=== PATIENT | female | born 1960 | race Caucasian/White ===

== ENCOUNTER 2017-12-31 08:07 | Inpatient (IN) | payer OTHER ==
[2017-12-31] VITALS (15 sets, daily range): BP systolic 119–171; BP diastolic 56–75
[~2017-12-31] VITALS: Ht 175.3 cm; Wt 137.0 kg
[~2017-12-31 08:07] MED LIST: ALORA0.025 MG PO; AMOXICILLIN500 MG PO; LOPRESSOR25 MG PO; METOPROL TAR25 MG PO; NORCO1 TA1 PO; NORVASC2.5 MG PO
--- NOTE | 2017-12-31 08:16 | NUR ---
WHEELCHAIR TO ER ROOM10, TO BED
[2017-12-31 08:25] LABS: HEMATOCRIT 39.7 % (37.0-47.0); HEMOGLOBIN 12.6 g/dl (12.0-16.0); IMMATURE GRANULOCYTES 0.3 % (0.0-1.0); MEAN CORPUSCULAR HGB 29.7 pG CALC (26.0-32.0); MEAN CORPUSCULAR HGB CONC 31.7 g/L CALC (32.0-36.0); NEUT# 5.72 thou/uL (2.00-7.15); RED BLOOD COUNT 4.24 mill/uL (4.20-5.60); RED CELL DISTRI WIDTH 13.6 % (11.5-15.5)
[2017-12-31 08:26] LABS: MEAN CELL VOLUME 93.6 fL CALC (80.0-100.0)
[2017-12-31] MEDS ORDERED: LOSARTAN POTASS50 MG PO (08:28)
[2017-12-31] MEDS ORDERED: SERTRALINE50 MG PO (08:29)
[2017-12-31] MEDS ORDERED: METOPROL TAR25 MG PO (08:29)
[2017-12-31] MEDS ORDERED: ESTRACE2 M1 PO (08:30)
[2017-12-31] MEDS ORDERED: TURMERIC500 M1 PO (08:31)
[2017-12-31] MEDS ORDERED: CETIRIZINE10 MG PO (08:31)
[2017-12-31] MEDS ORDERED: PHENTERMINE37.5 M1 PO (08:32)
[2017-12-31] MEDS ORDERED: GARLIC PO (08:32)
[2017-12-31 08:46] LABS: ALKALINE PHOSPHATASE 81 u/l (38-126); BILIRUBIN, TOTAL 0.5 mg/dL (0.0-1.4); BUN 13 mg/dL (7-17); BUN/CREATININE RATIO 16 (12-20 (CALC)); CARBON DIOXIDE 27 mmol/l (22-30); CHLORIDE 101 mmol/l (95-108); CREATININE 0.8 mg/dL (0.5-1.0); GFR > 60 ML/MIN (>=60 (CALC)); GFR FOR AFR.AMER. > 60 ML/MIN (>=60 (CALC)); SGOT/AST 39 u/l (14-36); SGPT/ALT 38 u/l (9-52); SODIUM 142 mmol/l (137-146); TOTAL PROTEIN 7.3 g/dL (6.3-8.2)
[2017-12-31 08:52] LABS: ANION GAP 17 (6-22 (CALC)); POTASSIUM 3.4 mmol/l (3.5-5.1)
[2017-12-31 08:56] LABS: ACT PARTIAL THROMBO TIME 26.8 SECONDS (20.0-32.5); D-DIMER 4.36 mg/L (0.19-0.60); PROTHROMBIN TIME 10.2 SECONDS (9.0-12.5)
--- NOTE | 2017-12-31 08:57 | NUR ---
NITRO OINTMENT PATCH PLACED ON LEFT SIDE OF CHEST. CALL LIGHT GIVEN TO PATIENT AND INFORMED TO CALL FOR ASSISTANCE. VERBAL UNDERSTANDING, WILL CONTINUE TO MONITOR.
[2017-12-31 09:05] LABS: INTERNATIONAL NORMALIZED RATIO 0.9 RATIO (0.7-1.3)
--- NOTE | 2017-12-31 09:48 | NUR ---
PATIENT AMBULATES TO BATHROOM WITH STANDBY ASSIST, REPORTS CHEST PAIN 09/16. PLACED ON MONITOR, O2 SAT AT 88% ON ROOM AIR. PLACED ON 2L/MIN OF O2 VIA NASAL CANNULA. O2 SAT INCREASED TO 98% ON O2. MD MADE AWARE. WILL CONTINUE TO MONITOR PATIENT. AT BEDSIDE.
--- NOTE | 2017-12-31 10:15 | NUR ---
MD AT BEDSIDE TO DISCUSS RESULTS AND PLAN OF CARE. VERBAL UNDERSTANDING FROM PATIENT.
--- NOTE | 2017-12-31 10:20 | NUR ---
International Project Engineer spoke with Ashanti and Tevin Tay LPN re: Patient's requirements to meet inpatient criteria - asked Ashanti to call Case Management to inquire on above. International Project Engineer called back and spoke to Ashanti, relaying that pulse oximetries, ortho blood pressures and blood gasses would be helpful in skilling PAtient as inpatient status - Ashanti stated she would deliver this info to Dr. Khris Mason.
--- NOTE | 2017-12-31 11:00 | NUR ---
PATIENT MEDICATED PER MD ORDER. VERBAL UNDERSTANDING OF BLEEDING RISK.
--- NOTE | 2017-12-31 11:09 | NUR ---
REPORT GIVEN TO SUMA STARK.
--- NOTE | 2017-12-31 11:24 | NUR ---
PT ARRIVED TO ICU BED 5 AT 1124 VIA STRETCHER. REPORT RECIEVED FROM CHRISTIANERN FROM ED. PT ALERT A&OX3, ABLE TO MAKE NEEDS KNOWN, PT SBA TRANSFERRED TO DIGITAL SCALE FOR WEIGHT, THEN TO BED. PT TOLERATED WELL. PT CHIEF C/O SOB 12-30-17 & CHEST PAIN STARTING 12-31-17. NITRO OINTMENT ON L CHEST; 20G TO RAC WITH HEPARIN INFUSING ORDERED, SITE CDI, NO REDNESS/WARMTH, NO S/S OF INFILTRATION. PT TOLERATED TRANSFER WELL. O2@2LPM VIA N/C PLACED IN ER, PT STATES NONE USE AT HOME. SR ON TELEMETRY AT THIS TIME. PT. DENIES CHEST PAIN AT THIS TIME, SOB ON EXERTION NOTED SA02 99%. LS CLEAR THROUGHOUT, PT DENIES COUGH, BSX4 ACTIVE, PT STATES M SOFT FORMED BM DOWN IN ER. PT STATES DIARRHEAX2 DAYS PRIOR TO ADMISSION. RLE AT [facility] WITH REDDENED AREA, NO WARMTH, PT STATES "IT'S BEEN THERE FOREVER". PT ORIENTED TO ROOM, AND UNIT. BED IN LOWEST POSITION, CALL LIGHT IN REACH, WILL CONTINUE TO MONITOR.
--- NOTE | 2017-12-31 11:25 | NUR ---
PATIENT TRANSPORTED TO ICU WITH TELESALES MANAGER IN PLACE, O2 AT 2L/MIN, HEPARIN DRIP. TRANSPORTED VIA STRETCHER. BEDSIDE REPORT GIVEN TO SUMA STARK AND SUMA DELGADO. CARE RELINQUISHED.
[2017-12-31 11:36] LABS: URINE BILIRUBIN - DIPSTICK NEGATIVE (NEGATIVE); URINE BLOOD DIPSTICK NEGATIVE (NEGATIVE); URINE CLARITY HAZY; URINE COLOR YELLOW; URINE GLUCOSE - DIPSTICK NEGATIVE (NEGATIVE); URINE KETONE NEGATIVE (NEGATIVE); URINE LEUK ESTERASE NEGATIVE (NEGATIVE); URINE NITRITE - DIPSTICK NEGATIVE (Negative); URINE PH 6.5 (4.5-8.0); URINE PROTEIN - DIPSTICK NEGATIVE (NEG-TRACE); URINE SPECIFIC GRAVITY <=1.005; URINE UROBILINOGEN - DIPSTICK 0.2 E.U./dL (0.2)
--- NOTE | 2017-12-31 12:15 | NUR ---
DR. CAIN AT BEDSIDE FOR ASSESSMENT, PT FAMILY AT THE BEDSIDE. PT DENIES CHEST PAIN, CONTINUES WITH SOB ON EXERTION, NO COUGH NOTED AT THIS TIME. NITRO PATCH TO L CHEST REMOVED PER .SR ON TELEMETRY. SAO2 99% ON 022LPM VIA N/C. CALL LIGHT IN REACH. WILL MONITOR.
--- NOTE | 2017-12-31 13:25 | NUR ---
PT ASSISTED TO BSC, LARGE YELLOW/BROWN LOOSE STOOL. PT CONTINUES TO DENY CHEST PAIN, AFEBRILE, CONTINUES WITH SOB UPON EXERTION. SR ON TELEMETRY. CALL LIGHT IN REACH, FAMILY REMAINS AT THE BEDSIDE. WILL MONITOR.
--- NOTE | 2017-12-31 14:25 | NUR ---
PT LEFT FLOOR VIA WHEELCHAIR TO GET ULTRASOUND OF BLE. WITH 02@2LPM VIA N/C, HEPARIN DRIP CONTINUES, LAC SITE CDI, NO S/S OF REDNESS OR INFILTRATE. PT TOLERATED TRANSFER WITHOUT DIFFICULTY NOTED. LEFT WITH JULIAN IN ULTRASOUND.
--- NOTE | 2017-12-31 15:13 | NUR ---
PT RETURNED TO ICU, BED 5 FROM ULTRASOUND. PT TOILETED AT BSC, 800 OP CLEAR YELLOW URINE. PT TOLERATED TRANFER WELL. FAMILY REMAINS AT THE BS. PT DENIES CHEST PAIN, SOB ON EXERTION CONTINUES, SA02 99% ON 02@2LPM. IV SITE REMAINS INTACT, NO S/S OF INFILTRATE. CALL LIGHT IN REACH.
--- NOTE | 2017-12-31 17:05 | NUR ---
DR. CAIN HERE ON FLOOR, PT C/O OF 02 DRYING NARES, HUMIDIFIER PLACED, SA02 100% 02@2LPM VIA N/C, RESULT GIVEN TO PT FROM DR. CAIN THE THE ULTRA SOUND OF BLE WAS NEGATIVE. FAMILY REMAINS AT THE BEDSIDE. PT DENIES CHEST PAIN, BACK PAIN OR ANY DISTRESS OTHER THAN SOB ON EXERTION. PT REMINDED OF CARDIAC DIET, LOW FAT, LOW NA+. FAMILY TO TAKE SNACKS HOME. CALL LIGHT IN REACH, WILL MONITOR.
--- NOTE | 2017-12-31 17:30 | NUR ---
PT REQUESTING TRAY FOR FAMILY, DIETARY NOTIFIED. PT RESTING IN BED, SR ON TELEMETRY, AFEBRILE, NO S/S OF DISTRESS NOTED AT THIS TIME. BLANKET FROM WARMER GIVEN TO PT. PER REQUEST. CALL LIGHT IN REACH, WILL MONITOR.
--- NOTE | 2017-12-31 18:00 | NUR ---
PT RESTING IN BED WITH FAMILY AT BEDSIDE, PT C/O NECK PAIN AND HEADACHE, DR. CAIN NOTIFIED, ORDER RECEIVED. SR ON TELEMETRY, PT DENIES CHEST PAIN AT THIS TIME, IV CONTINUES AT ORDERED RATE. NO S/S OF REDNESS OR INFILTRATE. CALL LIGHT IN REACH, WILL MONITOR.
--- NOTE | 2017-12-31 19:37 | NUR ---
PT IN BED A/O X3, RESPIRATIONS EVEN AND UNLABORED ON O2 @2L VIA NC O2 SAT 99%, LUNG SOUNDS CLEAR BILAT. TELE READING SR 80'S. ON HEPARIN GTT 1800U/HR DUE TO PROMINENT BILAT PULMONARY EMBOLI PER CTA SCAN. C/O HEAD, NECK AND LEFT SHOULDER PAIN 5/10, TRAMADOL 50MG PROVIDED PER DR'S ORDERS. PT'S DAUGHTER AT BED SIDE, PO FLUIDS IN REACH, ENCOURAGED TO USE CALL LIGHT FOR ASSISTANCE, WILL CONTINUE TO MONITOR.
--- NOTE | 2017-12-31 19:37 | NUR ---
PT IN BED A/O X3, RESPIRATIONS EVEN AND UNLABORED ON O2 @2L VIA NC O2 SAT 99% LUNG SOUNDS CLEAR BILAT. TELE READING SR 80'S. ON HEPARIN GTT 1800 UNITS/HR DUE TO PROMINENT BILAT PULMONARY EMBOLI PER CTA SCAN. C/O HEAD, NECK AND LEFT SHOULDER PAIN 5/10, TRAMADOL 50MG PROVIDED PER DR'S ORDERS. PT'S DAUGHTER AT BED SIDE, PO FLUIDS IN REACH, ENCOURAGED TO USE CALL LIGHT FOR ASSISTANCE, WILL CONTINUE TO MONITOR.
--- NOTE | 2017-12-31 21:40 | NUR ---
OOB TO BSC WITH NO ASSISTNACE, VOIDING 250ML YELLOW URINE.
--- NOTE | 2017-12-31 23:00 | NUR ---
PTT DRAWN BY PHLEBOTIMIST, PT TOLERATED WELL.
--- NOTE | 2017-12-31 23:50 | NUR ---
PTT 66.6 THERAPPEUTIC ACCORDING TO HEPARIN PROTOCOL PT AWARE. HEPARIN DRIP CONTINUES AT 1800 UNITS PER HOUR. CALL LIGHT IN REACH.
[2018-01-01] VITALS (12 sets, daily range): BP systolic 120–150; BP diastolic 58–78
--- NOTE | 2018-01-01 01:20 | NUR ---
OOB TO BSC WITH NO ASSISTANCE, VOIDING 350ML CLEAR YELLOW URINE THEN BACK TO BED. CALL LIGHT IN REACH.
--- NOTE | 2018-01-01 02:54 | NUR ---
RESTING WITH EYES CLOSED, RESPIRAITONS EVEN AND UNLABORED ON O2 @2L VIA NC. HEPARIN GTT INFUSING TO LAC WITH NO COMPLICATIONS. CALL LIGHT IN REACH.
--- NOTE | 2018-01-01 04:59 | NUR ---
MORNING BLOOD WORK DRAWN BY OYSTER CULLER PT TOLERATED WELL. RESPIRATIONS EVEN AND UNLABORED. VOICES NO CONCERNS. CALL LIGHT IN REACH.
[2018-01-01 05:12] LABS: HEMATOCRIT 36.2 % (37.0-47.0); HEMOGLOBIN 11.7 g/dl (12.0-16.0); MEAN CELL VOLUME 93.3 fL CALC (80.0-100.0); MEAN CORPUSCULAR HGB 30.2 pG CALC (26.0-32.0); MEAN CORPUSCULAR HGB CONC 32.3 g/L CALC (32.0-36.0); RED BLOOD COUNT 3.88 mill/uL (4.20-5.60)
[2018-01-01 05:56] LABS: ANION GAP 15 (6-22 (CALC)); BUN 11 mg/dL (7-17); BUN/CREATININE RATIO 16 (12-20 (CALC)); CALCULATED LDLCHOLESTEROL 103 mg/dL (62-129 (CALC)); CARBON DIOXIDE 26 mmol/l (22-30); CHLORIDE 104 mmol/l (95-108); CHOLESTEROL HDL RATIO 4.2 (<4.4 (CALC)); CREATININE 0.7 mg/dL (0.5-1.0); GFR > 60 ML/MIN (>=60 (CALC)); GFR FOR AFR.AMER. > 60 ML/MIN (>=60 (CALC)); HDL CHOLESTEROL 43 mg/dL (>=40); MAGNESIUM 1.9 mg/dL (1.6-2.3); POTASSIUM 3.9 mmol/l (3.5-5.1); SODIUM 141 mmol/l (137-146); TOTAL CHOLESTEROL 180 mg/dl (0-199); TOTAL TRIGLYCERIDES 166 mg/dl (30-149); VLDL CHOLESTROL 33 mg/dl (2-49 (CALC))
--- NOTE | 2018-01-01 07:05 | NUR ---
pt awake in bed; no distress noted; pt offers no complaints at this time; assessment completed at this time; pt alert and oriented; denies pain/chest pain; denies sob; resp even and unlabored; lungs clear throghout; skin color wnl; o2 per nc at 2L humidified; no cough noted; hr reg; strong pulses; no edema noted; sr on monitor; abd soft with bs present; no bm noted per law writer; pt admits to voiding without pain or burning; no urine to inspect at this time; bsc; #20 in lac patent with Heparin gtt infusing at 1800 units/hr; iv flushed and patent with good blood return noted; no redness or edema noted at site; am meds/ plan of care explained; visitor at bedside; call light within reach; will continue to monitor closely
--- NOTE | 2018-01-01 08:00 | NUR ---
awake; eating breakfast; offers no complaints; iv patent; hepatin gtt continues at 1800 units/hr; iv patent; sr on monitor; deny needs; call light within reach; will continue to monitor
--- NOTE | 2018-01-01 09:00 | NUR ---
awake in med; am meds explained and administered; pt with complaints of being uncomfortable; denies pain; assist to relciner for comfort; will continue to monitor
--- NOTE | 2018-01-01 10:00 | NUR ---
awake in recliner; offers no complaints; no distress noted; iv patent; heparin gtt continues as per protocol at 1800 units/hr; iv patent; no redness or edema noted at site; sr on monitor; pt deny needs at this time; call light within reach; will continue to monitor
--- NOTE | 2018-01-01 11:34 | NUR ---
awake in recliner; offers no complains; family x2 at bedside; iv patent; no redness or edema noted at site; heparin gtt cont at 1800 units/hr; sr on monitor; afebrile; will continue to monitor
--- NOTE | 2018-01-01 12:20 | NUR ---
SUDHA Lan at bedside to assess pt and discuss plan of care; orders to be placed; will continue to monitor
--- NOTE | 2018-01-01 13:09 | NUR ---
Dr Patrick's office called in regards to consultation; information provided to Corina;
--- NOTE | 2018-01-01 13:32 | NUR ---
report given to Katie Dumas RN
--- NOTE | 2018-01-01 13:46 | NUR ---
Dr Patrick at bedside to assess pt and discuss plan of care
--- NOTE | 2018-01-01 14:17 | NUR ---
pt up from recliner to bsc with stnd by assist, tolerates activity well; call talbert within reach,
--- NOTE | 2018-01-01 14:24 | NUR ---
pt voided 300 mL clear yellow urine provided self jeet care, cback to recliner with same assist, minimal exertionsla SOB noted, call talbert within reach, tolerated activity well.
--- NOTE | 2018-01-01 14:54 | NUR ---
plan of care explained to pt; 1st dose of gastrographin administered as per orders; will continue to monitor
--- NOTE | 2018-01-01 15:00 | NUR ---
PT CAME FROM ICU VIA WHEELCHAIR BY SUMA DELGADO. PT IS IN O2 AT 2L/MIN VIA NC AND TELE IN PLACE. ASSESSMENT DONE .RESPS EVEN AND UNLABORED. PT DENIES PAIN AT THIS TIME. HEPARIN DRIP IN IV IS INFUSING WELL. SAFETY PRECAUTIONS REINFORECED AND CALL LIGHT IN REACH. FAMILY IN ROOM.
--- NOTE | 2018-01-01 15:00 | NUR ---
pt transferred to med/surg room 289 via wc with portable o2 in stable condition; tele monitor [id number] applied prior to transfer; pt transferred with all pt belongings; family at bedside; iv patent; heparin gtt continues at 1800 units/hr; no redness or edema noted at site; report/ update given to Katie Dumas RN;
--- NOTE | 2018-01-01 17:35 | NUR ---
PT WENT TO CT VIA WHEELCHAIR BY UMBRELLA FRAME MAKER.
--- NOTE | 2018-01-01 18:31 | NUR ---
PT BACK FROM CT AND ACQUISITION SPECIALIST IN ROOM FOR STAND BY ASSIST. CALL LIGHT IN REACH. FAMILY IN ROOM.
[2018-01-01 19:27] LABS: C. DIFFICILE TOXIN A&B NEGATIVE (NEGATIVE)
--- NOTE | 2018-01-01 21:35 | NUR ---
PT.IS HIGH FOWLERS POSITION IN BED W/DAUGHTER SITTING ON SIDE OF THE BED. PT.REPORTS HAVING DIAHREA THIS AFTERNOON, BUT FEELS IT IS SLOWING. C/O HEAD AND NECK PAIN, ULTRAM ADMINISTERED PER REQUEST PAIN REPORTED 4-5/10 ON PAIN SCALE. PT.ASSESSED AT THIS TIME AND MEDICATIONS ADMINISTERED. PT.MENTIONED FEELING LIKE SHE HAS A FILM OVER HER EYES/IRRITATED AND WANTED ME TO CHECK HER EYES, NOTHING VISUALIZED IN EYES/SLIGHT REDDENED/IRRITATED IN APPEARANCE, OFFERED WARM COMPRESS FOR EYES. PT.PROVIDED W/ALICIA CARE WIPES FOR COMFORT UPON REQUEST. PT.DENIES ANY OTHER NEEDS AT THIS TIME. LUNG SOUNDS ARE DIMINISHED/CLEAR UPPER. CALL LIGHT IS W/IN REACH AND PT.ENCOURAGED TO CALL IF ANY NEEDS ARISE.
--- NOTE | 2018-01-02 01:58 | NUR ---
PT.IS SLEEPING AT THIS TIME. LIGHTS ARE OFF AND NO S/S OF DISTRESS NOTED AT THIS TIME. CALL LIGHT IS AT SIDE.
--- NOTE | 2018-01-02 02:40 | NUR ---
PT.IS SLEEPING AT THIS TIME. NO S/S OF DISTRESS NOTED. PT.AWOKE TO MY ENTERING ROOM, IV PUMP WAS SOUNDING. PT.DENIES ANY OTHER NEEDS. CALL LIGHT W/IN REACH
[2018-01-02 03:53] VITALS: BP 112/64
--- NOTE | 2018-01-02 05:23 | NUR ---
PT.IS SLEEPING AT THIS TIME. CALL LIGHT W/IN REACH. LAB WAS IN TO SEE PT
--- NOTE | 2018-01-02 07:20 | NUR ---
REPORT RECEIVED FROM WAYNERN;PT OOB RESTING IN RECLINER;RESPIRATIONS APPEAR EVEN AND UNLABORED ON 02 @ 2L VIA NC;TELE MONITOR IN PLACE;PT DENIES ANY CURRENT NEEDS;POC DISCUSSED;TELE MONITOR IN PLACE;FALL PRECAUTIONS;CALL LIGHT IN REACH;WILL CONTINUE TO MONITOR
[2018-01-02 09:10] VITALS: BP 136/57
--- NOTE | 2018-01-02 09:15 | NUR ---
PT OOB RESTING IN RECLINER;VS OBTAINED AND ASSESSMENT COMPLETED;A&O X4;RESPIRATIONS EVEN AND UNLABORED,SHALLOW ON 02 @ 2L VIA NC;PT IS NOT HOME DEPENDENT;ABDOMEN DISTENED/SOFT ON PALPATION AND ACTIVE IN ALL 4 QUADRANTS;STRONG PEDAL PULSES;TELE MONITOR IN PLACE;#20G TO LAC INFUSING HEPRAIN DRIP WITH EASE;#20G TO RAC FLUSHED AND PATENT,SITES APPEAR HEALTHY;PT DENIES ANY CURRENT NEEDS OR PAIN,PAIN SCALE AND REPORTING ENCOURAGED;FRESH WATER PROVIDED;PT ENCOURAGED TO CALL FOR ASSISTANCE IF NEEDED;FALL PRECAUTIONS IN PLACE WITH CALL LIGHT IN REACH;WILL CONTINUE TO MONITOR
--- NOTE | 2018-01-02 10:15 | NUR ---
HEPARIN DRIP DISCONTINUED AT THIS TIME PER MD ORDERS;PT ASSISTED INTO SHOWER PER REQUEST;DENIES ANY CURRENT NEEDS;SPOUSE AT BEDSIDE;WILL CONTINUE TO MONITOR
[2018-01-02 12:06] VITALS: BP 134/54
--- NOTE | 2018-01-02 12:30 | NUR ---
PT OOB RESTING IN RECLINER WITH FAMILY AT BEDSIDE;PT DENIES ANY CURRENT PAIN OR NEEDS;RESPIRATIONS EVEN AND UNLABORED ON O2 @ 2L VIA NC;TELE MONITOR IN PLACE;ENCOURAGED TO CALL FOR ASSISTANCE IF NEEDED;CALL LIGHT IN REACH;WILL CONTINUE TO MONITOR
--- NOTE | 2018-01-02 16:25 | NUR ---
PT RESTING IN SEMI FOWLERS POSITION WITH FAMILY AT BEDSIDE;RESPIRATIONS EVEN AND UNLABORED ON RA;PT DENIES ANY SOB OR PAIN;IV SITES PATENT;TELE MONITOR IN PLACE;PT VOICES NO CURRENT NEEDS AT THIS TIME;SAFETY PRECAUTIONS REINFORCED;CALL LIGHT IN REACH;WILL CONTINUE TO MONITOR
[2018-01-02 17:10] VITALS: BP 140/58
--- NOTE | 2018-01-02 18:20 | NUR ---
PT COMPLAINS OF HEADACHE PAIN RATING 4/10 ON THE PAIN SCALE;PT MEDICATED WITH ULTRAM 50MG PO,WILL CONTINUE TO MONITOR FOR EFFECTIVENESS
--- NOTE | 2018-01-02 19:00 | NUR ---
REPORT RECEIVED FROM DAY NURSE. PT.IS LOW FOWLERS POSITION IN BED WATCHING TV W/LIGHTS OFF. PT.REPORTS SLIGHT IMPROVEMENT OF HEADACHE/RECENTLY MEDICATED FOR. SHE DENIES ANY OTHER NEEDS AT THIS TIME. CALL LIGHT IS W/IN REACH AND PT.ENCOURAGED TO CALL IF ANY NEEDS ARISE.
[2018-01-02 19:30] VITALS: BP 126/72
--- NOTE | 2018-01-02 21:51 | NUR ---
PT.AMBULATING AROUND ROOM AT THIS TIME. REPORTS FEELING STABLE ON HER FEET, NO SOB OR DIZZINESS. PT.MEDICATED ORDERS PROVIDE. SHE DROPPED HER MEDICINE CUP ON THE FLOOR W/3XPILLS IN IT/RECOVERED. PULLED ADDITIONAL DOSE TO GIVE. COMPLETE ASSESSMENT:LUNG SOUNDS CLEAR, NO EDEMA NOTED,SKIN INTACT, LOCX4,LOOSE BM REPORTED THIS AM AND NO OTHERS, REPORTS PAIN 0/10 AT THIS TIME. POC DISCUSSED W/PT. CALL LIGHT W/IN REACH, PT.ENCOURAGED TO CALL FOR FURTHER NEEDS THEY ARISE.
[2018-01-03 00:45] VITALS: BP 130/74
--- NOTE | 2018-01-03 03:00 | NUR ---
PT.APPEARS TO BE SLEEPING, AWOKE TO MY ENTERING ROOM. REPORTS SLEEPING WELL AND DENIES ANY NEEDS AT THIS TIME. CALL LIGHT IS AT BEDSIDE, LIGHTS AND TV ARE OFF
[2018-01-03 04:45] VITALS: BP 121/66
--- NOTE | 2018-01-03 07:20 | NUR ---
REPORT RECEIVED FROM SUMA BLACK;PT RESTING IN SEMI FOWLERS POSITION;INTRODUCED SELF TO PT AND POC DISCUSSED;RESPIRATIONS EVEN AND UNLABORED,SHALLOW ON OXYGEN @ 2L VIA NC;PT DENIES ANY CURRENT PAIN OR NEEDS;TELE MONITOR IN PLACE;ENCOURAGED TO EXPRESS CONCERNS AND CALL FOR ASSISTANCE IF NEEDED;CALL LIGHT IN REACH;WILL CONTINUE TO MONITOR
[2018-01-03 08:49] VITALS: BP 138/78
--- NOTE | 2018-01-03 08:55 | NUR ---
PT AMBULATING BACK FROM RESTOOM WITH STEADY GAIT;VS OBTAINED AND ASSESSMENT COMPLETED;CURRENT O2 ON RA @ 99%;RESPIRATIONS SHALLOW,OXYGEN AT BEDSIDE;ABDOMEN DISTENDED/SOFT ON PALPATION AND ACTIVE IN ALL 4 QUADRANTS;#20G TO RAC FLUSHED AND PATENT,SITE APPEARS HEALTHY;PT DENIES ANY PAIN OR DISCOMFORTS,PAIN SCALE AND REPORTING RE-EDUCATED;TELE MONITOR IN PLACE;INFLUENZA VACCINE ADMINISTERED AT THIS TIME,PT TOLERATED WELL;ALL SAFETY PRECAUTIONS REINFORCED WITH BED IN THE LOWEST POSITION;CALL LIGHT IN REACH;WILL CONTINUE TO MONITOR
--- NOTE | 2018-01-03 09:05 | NUR ---
PT SET UP FOR SHOWER AND TELE MONITOR REMOVED
[2018-01-03 10:53] VITALS: BP 137/74
--- NOTE | 2018-01-03 12:00 | NUR ---
PT RESTING IN RECLINER WITH FAMILY AT BEDSIDE;DENIES ANY CURRENT PAIN OR NEEDS;RESPIRATIONS REMAIN EVEN AND UNLABORED,SHALLOW ON RA;TELE MONITOR IN PLACE;CALL LIGHT IN REACH;WILL CONTINUE TO MONITOR
[2018-01-03 15:07] VITALS: BP 129/72
--- NOTE | 2018-01-03 16:50 | NUR ---
PT RESTING IN SEMI FOWLERS POSITION;RESPIRATIONS EVEN AND UNLABORED ON OXYGEN @ 2L VIA NC;TELE MONITOR IN PLACE;IV SITE PATENT;PT DENIES ANY COMPLAINTS OF PAIN OR NEEDS;NON-PRODUCTIVE COUGH NOTED;ENCOURAGED TO CALL FOR ASSISTANCE IF NEEDED;CALL LIGHT IN REACH;WILL CONTINUE TO MONITOR
--- NOTE | 2018-01-03 18:00 | NUR ---
HEPARIN DRIP STARTED ORDERED AT THIS TIME WITH WRITTER AND EDIL AKHTARRN AT BEDSIDE;PTT TO BE DRAWN PER PROTOCOL @ 2400;SITE APPEARS HEALTHY AND FREE FROM REDNESS OR EDEMA;SITE SECURED WITH COBAN;PT DENIES ANY QUESTIONS OR CONCERNS;WILL CONTINUE TO MONITOR
[2018-01-03 19:20] VITALS: BP 133/78
--- NOTE | 2018-01-03 19:42 | NUR ---
REPORT RECEIVED FROM DAY NURSE. PT.IS IN HIGH FOWLERS IN BED WATCHING TV W/LIGHTS OUT. PT.DENIES PAIN/N/V AT THIS TIME. NO S/S OF DISTRESS NOTED. PT.DENIES ANY NEEDS AT THIS TIME. HEP DRIP IS RUNNING 36MLS/1800UN/HR. IV SITE APPEARS HEALTHY. CALL LIGHT IS W/IN REACH AND PT.ENCOURAGED TO CALL FOR ASSISTANCE NEEDED.
--- NOTE | 2018-01-03 23:15 | NUR ---
PT.WAS AWAKE UPON ENTERING THE ROOM, LIGHTS LOW AND TV ON. POC DISCUSSED IN GREAT LENGTH W/PT AND PT.MEDICATED W/PM MEDICATIONS AND ULTRAM ORDERED. PAIN REPORTED IN KNEE 01/14. PT.STATES THAT SHE THINKS IT IS RELATED TO RECENT DECREASED MOBILITY. PT.ASSESSED, SLIGHT NOTED EDEMA IN RIGHT KNEE. ASSISTED PT.TO RESTROOM AND BACK TO BED. CALL LIGHT IS IN HAND AND PT.ENCOURAGED TO CALL IF ANY NEEDS ARISE.
[2018-01-04 00:22] VITALS: BP 141/73
--- NOTE | 2018-01-04 02:15 | NUR ---
HEPARIN DRIP RATE CHANGED PER PROTOCOL. PT WAS SLEEPING, BUT AWOKE WE ENETERED THE ROOM. NO S/S OF DISTRESS, BUT ASSISTED PT.TO RESTROOM AND BACK TO BED. DENIES ANY OTHER NEEDS AND RETURNING TO SLEEP. LIGHTS TURNED OUT AND CALL LIGHT AT SIDE.
--- NOTE | 2018-01-04 03:50 | NUR ---
ADMINISTERED BOLUS FOR PTT OF 48.2 PER PROTOCOL ORDERS. PT.ASSISTED TO RESTROOM AND BACK TO BED. DENIES ANY OTHER NEEDS OF ASSISTANCE AT THIS TIME AND STATES THAT SHE PLANS TO TRY AND SLEEP MORE. LIGHTS TURNED OFF, CALL LIGHT AT SIDE.
[2018-01-04 04:16] VITALS: BP 120/68
--- NOTE | 2018-01-04 05:06 | NUR ---
LAB IN TO SEE PT., LUNG SOUNDS ARE CLEAR UPPER DIM LOWER. HEPARIN DRIP IS RUNNING @2000UN/HR 40MLS/HR. IV SITE APPEARS HEALTHY AT THIS TIME. PT.DENIES ANY OTHER NEEDS AT THIS TIME, CALL LIGHT W/IN REACH. LIGHTS TURNED OFF PT.LEFT IN LOW FOWLERS POSITION IN BED WITH INSTRUCTIONS TO CALL IF ANY ASSISTANCE IS NEEDED.
[2018-01-04 05:27] LABS: HEMATOCRIT 37.3 % (37.0-47.0); HEMOGLOBIN 11.9 g/dl (12.0-16.0); MEAN CELL VOLUME 93.7 fL CALC (80.0-100.0); MEAN CORPUSCULAR HGB 29.9 pG CALC (26.0-32.0); MEAN CORPUSCULAR HGB CONC 31.9 g/L CALC (32.0-36.0); RED BLOOD COUNT 3.98 mill/uL (4.20-5.60); RED CELL DISTRI WIDTH 13.8 % (11.5-15.5)
[2018-01-04 06:14] LABS: ALBUMIN 3.4 g/dL (3.2-5.0); ALKALINE PHOSPHATASE 85 u/l (38-126); ANION GAP 14 (6-22 (CALC)); BILIRUBIN, TOTAL 0.4 mg/dL (0.0-1.4); BUN 11 mg/dL (7-17); BUN/CREATININE RATIO 18 (12-20 (CALC)); C-REACTIVE PROTEIN 2.3 mg/dL (0-0.9); CARBON DIOXIDE 26 mmol/l (22-30); CHLORIDE 103 mmol/l (95-108); CREATININE 0.6 mg/dL (0.5-1.0); GFR > 60 ML/MIN (>=60 (CALC)); GFR FOR AFR.AMER. > 60 ML/MIN (>=60 (CALC)); SGOT/AST 50 u/l (14-36); SGPT/ALT 45 u/l (9-52); SODIUM 139 mmol/l (137-146); TOTAL PROTEIN 6.1 g/dL (6.3-8.2)
--- NOTE | 2018-01-04 07:00 | NUR ---
RECEIVED BEDSIDE REPORT FROM WAYNE MOISE. RESTING IN SEMI FOWLERS. RESPS EVEN AND UNLABORED ON ROOM AIR, TELE MONITOR IN PLACE. #20 RAC HEPARIN GTT INFUSING PER PROTOCOL WITHOUT DIFFICULTY, SITE APPEARS HEALTHY. DENIES PAIN OR DISCOMFORT. PLAN OF CARE DISCUSSED. SAFETY PRECAUTIONS REINFORCED. BED IN LOWEST POSITION WITH WHEELS LOCKED. CALL LIGHT WITHIN REACH. ENCOURAGED PT TO CALL FOR ANY NEEDS.
[2018-01-04 09:02] VITALS: BP 117/68
[2018-01-04 11:23] VITALS: BP 129/74
--- NOTE | 2018-01-04 12:55 | NUR ---
DR CAIN AT BEDSIDE, NEW ORDERS RECEIVED.
[2018-01-04 15:40] VITALS: BP 129/78
--- NOTE | 2018-01-04 16:00 | NUR ---
SITTING IN BEDSIDE CHAIR, FAMILY AT BEDSIDE. RESPS EVEN AND UNLABORED ON ROOM AIR, TELE MONITOR IN PLACE. #20 RAC INFUSING HEPARIN GTTS PER PROTOCOL, WITHOUT DIFFICULTY, SITE APPEARS HEALTHY. DENIES PAIN OR DISCOMFORT. CALL LIGHT WITHIN REACH. WILL CONTINUE TO MONITOR.
--- NOTE | 2018-01-04 17:05 | NUR ---
TO [facility] IN STABLE CONDITION VIA [facility]. ALL PERSONAL POSSESIONS WITH PT.
--- NOTE | 2018-01-04 17:14 | NUR ---
NURSE TO NURSE REPORT CALLED TO ISAÍAS MOISE AT [facility].
== END 2018-01-04 17:03 | disposition short-term general hospital (02) | DRG 176 ==
LOC: ED 08:07 → ED-I 09:51 → ED 10:21 → ICU 10:22 → MS2 01-01 15:05
PROVIDERS: Family Medicine; Internal Medicine; ADMIT Internal Medicine; ATTEND Internal Medicine
DX: I26.99 Other pulmonary embolism without acute cor pulmonale (principal); E66.01 Morbid (severe) obesity due to excess calories; Z68.41 Body mass index [BMI] 40.0-44.9, adult; E78.5 Hyperlipidemia, unspecified; I10 Essential (primary) hypertension; M19.90 Unspecified osteoarthritis, unspecified site; R91.1 Solitary pulmonary nodule; R09.02 Hypoxemia; F32.9 Major depressive disorder, single episode, unspecified; N28.89 Other specified disorders of kidney and ureter; Z85.41 Personal history of malignant neoplasm of cervix uteri; Z91.81 History of falling; Z79.890 Hormone replacement therapy
CPT/HCPCS: G0328; Q9967